=== PATIENT | female | born 1940 | race Caucasian/White ===

== ENCOUNTER 2022-08-19 20:32 | Emergency (ER) | payer MEDICARE, OTHER ==
[~2022-08-19] VITALS: Ht 154.9 cm; Wt 90.7 kg
[2022-08-19 20:42] VITALS: BP_SYST 133
--- NOTE | 2022-08-19 21:25 | NUR ---
pPatient to ER bed 02 to gown for evaluation. Side rails up. Report given to GWENDOLYN TABOR.
--- NOTE | 2022-08-19 22:00 | NUR ---
No change from previous assessment. Will continue with POC; and, continue to monitor VS & clinical status.
[2022-08-19] MEDS ORDERED: KETOROLAC TROMETHAMINE 60 MG/2 ML VIAL IM ONE (22:45)
--- NOTE | 2022-08-19 22:49 | NUR ---
Patient medicated with Toradol 60 mg IM.
--- NOTE | 2022-08-19 22:52 | NUR ---
Portable xray at bedside for pelvic xray.
--- NOTE | 2022-08-20 | NUR ---
No change from previous assessment. Will continue with POC; and, continue to monitor VS & clinical status.
--- NOTE | 2022-08-20 02:00 | NUR ---
No change from previous assessment. Will continue with POC; and, continue to monitor VS & clinical status.
--- NOTE | 2022-08-20 04:00 | NUR ---
No change from previous assessment. Will continue with POC; and, continue to monitor VS & clinical status.
--- NOTE | 2022-08-20 06:00 | NUR ---
No change from previous assessment. Will continue with POC; and, continue to monitor VS & clinical status.
--- NOTE | 2022-08-20 07:10 | NUR ---
Care endorsed to GWENDOLYN Malhotra.
--- NOTE | 2022-08-20 08:04 | NUR ---
CONTACTED: [facility] SPOKE TO AYLIN FOR PT TRANSFER TO HIGHER LEVEL OF CARE. PT FROM HOME DX FRACTURED FIBULA IN NEED OF SNF.
--- NOTE | 2022-08-20 08:51 | NUR ---
aircraft avionics technician Becka taking over transfer appropriation.
--- NOTE | 2022-08-20 11:08 | NUR ---
REPORT CALLED TO [facility].
[2022-08-20 18:50] VITALS: BP_SYST 131
== END 2022-08-20 11:08 ==
LOC: SED 20:32
DX: S82.831A Other fracture of upper and lower end of right fibula, initial encounter for closed fracture (principal); S93.601A Unspecified sprain of right foot, initial encounter; I11.0 Hypertensive heart disease with heart failure; I50.9 Heart failure, unspecified; Z88.0 Allergy status to penicillin; Z88.3 Allergy status to other anti-infective agents; Z88.6 Allergy status to analgesic agent; Z79.899 Other long term (current) drug therapy; Z20.822 Contact with and (suspected) exposure to COVID-19; W18.30XA Fall on same level, unspecified, initial encounter; Y93.89 Activity, other specified; Y92.89 Other specified places as the place of occurrence of the external cause; Y99.8 Other external cause status
CPT/HCPCS: 99285; 29515; 87426; 36415; 72170; 73610; 73630; 96372; J1885